=== PATIENT | female | born 1990 | race Caucasian/White ===

== ENCOUNTER 2022-05-27 17:40 | Emergency (ER) | payer BC, OTHER ==
[2022-05-27] MEDS ORDERED: hydrOXYzine HCl 25 MG Tab PO ONE (18:08)
== END 2022-05-27 19:34 | disposition home or self-care (01) ==
LOC: CC.ED 17:40
DX: R42 Dizziness and giddiness (principal); F41.9 Anxiety disorder, unspecified; Z79.899 Other long term (current) drug therapy
CPT/HCPCS: 36415; 71045; 80053; 83735; 84484; 85025; 93005; 99284; A9270-GY